=== PATIENT | female | born 1990 | race Caucasian/White ===

== ENCOUNTER 2016-06-30 09:20 | Outpatient (RCR) | payer BC, MEDICAID | END 2016-09-28 | disposition home or self-care (01) | LOC: EUOP 09:20 | PROVIDERS: ATTEND Family Medicine | DX: Z34.83 Encounter for supervision of other normal pregnancy, third trimester (principal); Z3A.28 28 weeks gestation of pregnancy | CPT/HCPCS: 86850; 86900; 86901; 96372 ==

== ENCOUNTER → 2016-08-25 | Outpatient (CLI) | payer BC, MEDICAID ==
[~2016-08-25] MED LIST: IBUP-1772 PO; PNV91TAB3 PO
--- NOTE | 2016-08-25 14:52 | Diagnostic Imaging Report ---
INDICATION: Preeclampsia, growth. COMPARISON: 05/09/2016 Number: One Presentation: Cephalic Placenta: Anteriorly positioned without evidence of placenta previa Amniotic Fluid: CORTEZ is 18 cm. Single largest vertical pocket is 6.2 cm. Heart Rate: 156 bpm biometrics are symmetric. They are consistent with an estimated gestational age of 36 weeks and 1 day. Therefore, there is an estimated due date based upon this examination of 09/21/2016. Findings are consistent with clinical dating. There has been adequate interval growth since the prior examination. Intracranial contents are grossly unremarkable. The kidneys, four-chamber heart, urinary bladder, and three-vessel cord are unremarkable. The spine is not optimally evaluated secondary to advanced gestational age. The peak systolic velocity within the middle cerebral arteries is measured between 41 cm/s and 66 cm/s. For a 36 week gestation, this is between the 10th and 90th percentiles. Therefore, this would be considered within normal limits. IMPRESSION: 1. Single live intrauterine gestation at an estimated gestational age of 36 weeks and 1 day. Findings are consistent with clinical dating and there has been adequate interval growth since the prior examination. 2. No anomaly identified at this time. 3. The peak systolic velocities within the middle cerebral arteries are within normal limits as described above. Report was called and faxed to Toya at office of Dr. Encarnacion @ 2:51 PM/modesta. Dictated by: Dictated on workstation # [id number]
== END ==
LOC: RAD 11:47
PROVIDERS: ATTEND Family Medicine
DX: O14.93 Unspecified pre-eclampsia, third trimester (principal); Z3A.36 36 weeks gestation of pregnancy
CPT/HCPCS: 76805

== ENCOUNTER 2016-08-31 10:50 | Inpatient (IN) | payer BC, MEDICAID ==
[2016-08-31] VITALS (7 sets, daily range): BP systolic 116–149; BP diastolic 64–96
[~2016-08-31] VITALS: Ht 172.7 cm; Wt 127.2 kg
[2016-08-31] MEDS ORDERED: SODIUM CHLORIDE FLUSH 10 ML ONE (20:07)
[2016-08-31] MEDS ORDERED: OXYTOCIN INJ 20 UNIT in NS 1000ml 1,000 ML IV PRN (20:52)
[2016-08-31] MEDS ORDERED: SODIUM CHLORIDE FLUSH 10 ML SYR IV PRN (20:55)
[2016-08-31] MEDS ORDERED: CALCIUM CARBONATE CHEWABLE 300 MG (TUMS) TABLET PO PRN (20:55)
[2016-08-31] MEDS ORDERED: SODIUM CHLORIDE FLUSH 3 ML SYR IV PRN (20:55)
[2016-08-31 21:26] LABS: MEAN CORPUSCULAR HGB CONC 34.1 g/dL (31.0-37.0); MEAN PLATELET VOLUME 12.3 FL (6.0-9.5); WHITE BLOOD COUNT 9.88 10^3uL (4.0-11.0)
[2016-08-31 21:27] LABS: MEAN CORPUSCULAR HEMOGLOBIN 33.1 PG (26.0-34.0)
[2016-08-31] MEDS: MISOPROSTOL 25 MCG (CYTOTEC) TABLET PV SCH (21:45)
[2016-09-01] VITALS (36 sets, daily range): BP systolic 119–169; BP diastolic 56–107
[2016-09-01] MEDS: MISOPROSTOL 25 MCG (CYTOTEC) TABLET PV SCH ×2 (01:00→04:04)
--- NOTE | 2016-09-01 07:00 | NUR ---
Report to Gerry Candelaria RN
[2016-09-01] MEDS ORDERED: OXYTOCIN INJ 20 UNIT in NS 1000ml 1,000 ML IV SCH (07:55)
[2016-09-01] MEDS ORDERED: ROPIVACAINE 1% 10 MG/ML (NAROPIN) 20 ML AMPUL ONE ×2 (08:58)
[2016-09-01 11:12] LABS: BILIRUBIN,URINE Negative (Negative); CLARITY,URINE Clear; GLUCOSE, URINE (UA) Negative (Negative); LEUKOCYTE ESTERASE ,URINE Negative (Negative); PH,URINE 6.5 (5.0 - 8.0); UROBILINOGEN,URINE 0.2 mg/dL (0.2-1.0)
[2016-09-01 11:25] LABS: COLOR,URINE Light Yellow; URINE CENTRIFUGED VOLUME 12 mL
[2016-09-01] MEDS ORDERED: LANOLIN OINTMENT 28 GM TUBE TOP PRN (12:45)
[2016-09-01] MEDS ORDERED: HYDROcodone/APAP 5 MG/325 MG (NORCO) TAB PO PRN (12:45)
[2016-09-01] MEDS: IBUPROFEN 600 MG (MOTRIN) TAB PO PRN ×2 (15:41→22:09)
[2016-09-01 18:04] LABS: ANION GAP 10.9 MEQ/L (3-15)
[2016-09-01 18:08] LABS: ALBUMIN 3.1 g/dL (3.4-5.0); CALCULATED IONIZED CALCIUM 4.2 mg/dL (3.8-4.6); TOTAL PROTEIN 6.3 g/dL (6.4-8.5)
[2016-09-01] MEDS: DOCUSATE SODIUM 100 MG (COLACE) CAP PO SCH (21:03)
[2016-09-02 06:14] LABS: MEAN CORPUSCULAR HGB CONC 34.3 g/dL (31.0-37.0); MEAN PLATELET VOLUME 12.2 FL (6.0-9.5); WHITE BLOOD COUNT 11.9 10^3uL (4.0-11.0)
[2016-09-02 06:15] LABS: MEAN CORPUSCULAR HEMOGLOBIN 32.8 PG (26.0-34.0)
[2016-09-02] MEDS: IBUPROFEN 600 MG (MOTRIN) TAB PO PRN ×2 (07:34→18:15)
[2016-09-02 07:50] VITALS: BP_SYST 128; BP_SYST 138; BP_DIAS 87
[2016-09-02 20:45] VITALS: BP 135/83
[2016-09-02] MEDS: DOCUSATE SODIUM 100 MG (COLACE) CAP PO SCH (22:45)
[2016-09-03] MEDS: IBUPROFEN 600 MG (MOTRIN) TAB PO PRN ×2 (07:52→14:07)
[2016-09-03 08:35] VITALS: BP 134/94
--- NOTE | 2016-09-03 11:00 | NUR ---
Finishes pumping at this time, denies needs. Family at bedside.
--- NOTE | 2016-09-03 13:37 | NUR ---
Teaching completed for mother and baby. Parents verbalize understanding and all questions answered.
--- NOTE | 2016-09-03 13:38 | NUR ---
Dismissal instructions completed. Patient verbalizes understanding.
--- NOTE | 2016-09-03 14:57 | NUR ---
1420-Dismissed ambulatory to front entrance of hospital.
== END 2016-09-03 14:20 | disposition home or self-care (01) | DRG 775 ==
LOC: OB 19:52
PROVIDERS: ADMIT Family Medicine; ATTEND Family Medicine
PROC: 3E0P7GC Introduction of Other Therapeutic Substance into Female Reproductive, Via Natural or Artificial Opening (ICD-10-PCS; principal; 2016-09-01)
PROC: 10E0XZZ Delivery of Products of Conception, External Approach (ICD-10-PCS; 2016-09-01)
PROC: 0KQM0ZZ Repair Perineum Muscle, Open Approach (ICD-10-PCS; 2016-09-01)
PROC: 0W8NXZZ Division of Female Perineum, External Approach (ICD-10-PCS; 2016-09-01)
DX: O14.04 Mild to moderate pre-eclampsia, complicating childbirth (principal); O70.1 Second degree perineal laceration during delivery; Z3A.37 37 weeks gestation of pregnancy; Z37.0 Single live birth
CPT/HCPCS: 36415; 80053; 81003; 81015; 85027; 86850; 86870; 86900; 86901